=== PATIENT | male | born 1970 | race African-American/Black ===

== ENCOUNTER 2017-04-27 11:07 | Emergency (ER) | payer BC ==
[2017-04-27 11:16] VITALS: TEMP 98.4
[2017-04-27] MEDS ORDERED: LET GEL TOPICAL 1 EA SYR TP ONE (11:18)
[2017-04-27] MEDS ORDERED: fentaNYL 100 MCG/2 ML INJ IVP ONE (11:49)
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
[2017-04-27] MEDS ORDERED: HYDROmorphONE/DILAUDID 1 MG/ML SYR IVP ONE ×2 (12:56→13:17)
[2017-04-27] MEDS: KETOROLAC 30 MG/1 ML SDV IVP ONE ×2 (13:03→13:07)
[2017-04-27] MEDS ORDERED: HYDROmorphONE/DILAUDID 1 MG/ML SYR ONE (13:18)
[2017-04-27] MEDS ORDERED: BACITRACIN OINTMENT 1 PACKET TP ONE (13:41)
[2017-04-27 13:59] VITALS: BP 150/84; PULSE 65; RESP 16; O2SAT 95
== END 2017-04-27 14:19 | disposition home or self-care (01) ==
PROC: 0CQ0XZZ Repair Upper Lip, External Approach (ICD-10-PCS; principal; 2017-04-27)
DX: S43.101A Unspecified dislocation of right acromioclavicular joint, initial encounter (principal); S01.511A Laceration without foreign body of lip, initial encounter; V18.4XXA Pedal cycle driver injured in noncollision transport accident in traffic accident, initial encounter; Y92.410 Unspecified street and highway as the place of occurrence of the external cause; Y99.8 Other external cause status; Y93.55 Activity, bike riding
CPT/HCPCS: 96374; J1170; J1885; J3010